=== PATIENT | female | born 1975 | race African-American/Black ===

== ENCOUNTER 2023-10-19 16:47 | Emergency (ER) | payer OTHER, SELFPAY ==
[2023-10-19 17:00] VITALS: BP 132/68; PULSE 78; RESP 18; TEMP 36.2; O2SAT 100
--- NOTE | 2023-10-19 17:26 | ED.BACK ---
HPI - Back Pain/Injury General Chief Complaint: Back Pain/Injury Stated Complaint: back pain Time Seen by Provider: 10/19/23 17:26 Source: patient Mode of arrival: ambulatory Limitations: no limitations History of Present Illness HPI Narrative: 48-year-old female presents with complaint of right-sided low back pain radiating down right leg. Patient reports yesterday she was visiting family at a hotel and sat on the edge of the chair with little room to get comfortable for approximately 30 minutes. Is unsure if this is what is causing her pain but denies having any other injury. Reports no history of sciatica pain. Taking Tylenol with no relief of pain. Ambulatory with steady gait. Went to chiropractor and had adjustment today. Was told if pain did not improve to go to an urgent care for pain medication. All systems reviewed and negative except as noted above. Related Data Allergies Allergy/AdvReac Type Severity Reaction Status Date / Time Sulfa (Sulfonamide Allergy Itching Verified 10/19/23 16:59 Antibiotics) sulfamethoxazole Allergy Itching Verified 10/19/23 16:59 [From ] tramadol Allergy Hives Verified 10/19/23 16:59 trimethoprim [From ] Allergy Itching Verified 10/19/23 16:59 Review of Systems Review of Systems: CONSTITUTIONAL: Denies fever, chills, or sweats. EYES: Denies visual changes, redness, or discharge. ENT: Denies rhinorrhea, congestion, sore throat, or otalgia. CARDIOVASCULAR: Denies chest pain, palpitations, or edema. RESPIRATORY: Denies cough or dyspnea. GASTROINTESTINAL: Denies abdominal pain, nausea, vomiting, or diarrhea. GENITOURINARY: Denies dysuria or hematuria. SKIN: Denies rash or itching. MUSCULOSKELETAL: Reports right-sided low back pain with radiation to right lower extremity. NEUROLOGIC: Denies headache, numbness, or weakness. PSYCHIATRIC: Denies anxiety or depression. All other systems reviewed are negative, except as documented in HPI. PMFSH Comments At time of signature, agree with nursing past medical, surgical, social and family history. There is no relevant family history pertinent to the presenting complaint. Exam Narrative: GENERAL: This is a well-nourished, well-developed patient, in no apparent distress. HEAD: normocephalic, atraumatic. EYES: PERRL. Sclera clear/white. Vision is grossly intact. EARS: External ears normal NOSE: External nose normal NECK: Neck supple, non-tender without lymphadenopathy, masses or thyromegaly. CARDIOVASCULAR: Regular rate and rhythm without murmurs, gallops, or rubs. RESPIRATORY: Clear to auscultation. Breath sounds equal bilaterally. No wheezes, rales, or rhonchi. SKIN: warm, Dry, intact with no suspicious lesions or rash, good texture and turgor. NEURO: awake, alert, and oriented to person, place and time. There were no obvious focal neurologic abnormalities. EXTREMITIES: No joint tenderness, effusion, or edema noted. MUSCULOSKELETAL: R sided SI pain. positive R straight leg raise. LE strength 5/5 bilteral. Course Course Level of Care: Express Care Visit Vital Signs Vital signs: Vital Signs Temperature 36.2 C L 10/19/23 17:00 Pulse Rate 78 10/19/23 17:00 Respiratory Rate 18 10/19/23 17:00 Blood Pressure 132/68 10/19/23 17:00 Pulse Oximetry 100 10/19/23 17:00 Temperature 36.2 C L 10/19/23 17:00 Pulse Rate 78 10/19/23 17:00 Respiratory Rate 18 10/19/23 17:00 Blood Pressure 132/68 10/19/23 17:00 Pulse Oximetry 100 10/19/23 17:00 Reviewed MDM - Back Pain/Injury MDM Narrative Medical decision making narrative: Patient is aware of diagnosis, understands and agrees to treatment plan. Anticipatory guidance given. Patient agrees to follow-up as directed and is aware of reasons to seek care at the emergency department. Portions of this record may have been created with voice recognition software no neuro deficits at discharge. Will treat with prednis
== END 2023-10-19 17:40 | disposition home or self-care (01) ==
PROVIDERS: Emergency Provider Nurse Practitioner Family; PCP Family Medicine
DX: M54.41 Lumbago with sciatica, right side (principal)
CPT/HCPCS: 99203; G0463